=== PATIENT | female | born 1960 | race Caucasian/White ===

== ENCOUNTER → 2020-08-10 | Outpatient (CLI) | payer OTHER, SELFPAY ==
[~2020-08-10] VITALS: Ht 160 cm; Wt 54.4 kg
[~2020-08-10] MED LIST: CARAFATE 1 GM TA1 GM PO; FAMOTIDINE20 MG PO; ONDANSETRON HCL4 MG PO; OXYCODONE HCL5 MG PO; PANTOPRAZOLE SO40 MG PO
[2020-08-10 12:04] LABS: HEMOGLOBIN 14.1 gm/dl (12.3-15.3); RED BLOOD COUNT 4.7 M/UL (4.00-5.10); WHITE BLOOD COUNT 6.9 K/UL (4.5-11.0)
[2020-08-10 12:29] LABS: BUN/CREATININE RATIO 14 (0-10)
== END ==
LOC: OPSV 11:00
PROVIDERS: Internal Medicine
DX: K50.90 Crohn's disease, unspecified, without complications (principal)
CPT/HCPCS: 80053; 85027; 86140; 96365; 96366; J7050; Q5103

== ENCOUNTER → 2020-09-21 | Outpatient (CLI) | payer OTHER, SELFPAY ==
[~2020-09-21] VITALS: Ht 160 cm; Wt 54.4 kg
== END ==
LOC: OPSV 11:26
DX: K50.90 Crohn's disease, unspecified, without complications (principal)
CPT/HCPCS: 96365; 96366; J7050; Q5103

== ENCOUNTER → 2020-11-02 | Outpatient (CLI) | payer OTHER, SELFPAY ==
[~2020-11-02] VITALS: Ht 160 cm; Wt 54.4 kg
[2020-11-02 11:53] LABS: HEMOGLOBIN 13.6 gm/dl (12.3-15.3); RED BLOOD COUNT 4.38 M/UL (4.00-5.10); WHITE BLOOD COUNT 6.9 K/UL (4.5-11.0)
== END ==
LOC: OPSV 11:00
PROVIDERS: Nurse Practitioner Family
DX: K50.90 Crohn's disease, unspecified, without complications (principal)
CPT/HCPCS: 36415; 80053; 85027; 86140; 96365; 96366; J7050; Q5103

== ENCOUNTER → 2020-12-28 | Outpatient (CLI) | payer OTHER, SELFPAY ==
[~2020-12-28] VITALS: Ht 160 cm; Wt 54.4 kg
== END ==
LOC: OPSV 12-14 11:00
DX: K50.90 Crohn's disease, unspecified, without complications (principal)
CPT/HCPCS: 96365; 96366; J7050; Q5103

== ENCOUNTER → 2021-02-08 | Outpatient (CLI) | payer OTHER ==
[~2021-02-08] VITALS: Ht 160 cm; Wt 54.4 kg
[2021-02-08 10:58] LABS: HEMOGLOBIN 13.4 gm/dl (12.3-15.3); RED BLOOD COUNT 4.23 M/UL (4.00-5.10)
== END ==
LOC: OPSV 10:00
PROVIDERS: Nurse Practitioner Family
DX: K50.90 Crohn's disease, unspecified, without complications (principal)
CPT/HCPCS: 36415; 80053; 85027; 86140; 96365; 96366; J7050; Q5103

== ENCOUNTER → 2021-03-22 | Outpatient (CLI) | payer OTHER ==
[~2021-03-22] VITALS: Ht 160 cm; Wt 54.4 kg
[2021-03-22 11:31] LABS: HEMOGLOBIN 13.1 gm/dl (12.3-15.3); RED BLOOD COUNT 4.07 M/UL (4.00-5.10); WHITE BLOOD COUNT 6.4 K/UL (4.5-11.0)
[2021-03-22 14:00] LABS: BUN/CREATININE RATIO 13 (0-10)
== END ==
LOC: OPSV 10:00
PROVIDERS: Nurse Practitioner Family
DX: K50.90 Crohn's disease, unspecified, without complications (principal)
CPT/HCPCS: 36415; 80053; 85027; 86140; 96365; 96366; 96375; J7050; Q5103

== ENCOUNTER → 2021-05-03 | Outpatient (CLI) | payer OTHER ==
[~2021-05-03] VITALS: Ht 160 cm; Wt 54.4 kg
== END ==
LOC: OPSV 08:17
DX: K50.90 Crohn's disease, unspecified, without complications (principal)
CPT/HCPCS: 96365; 96366; J7050; Q5103

== ENCOUNTER → 2021-06-14 | Outpatient (CLI) | payer OTHER ==
[~2021-06-14] VITALS: Ht 160 cm; Wt 54.4 kg
[2021-06-14 11:04] LABS: HEMOGLOBIN 13.5 gm/dl (12.3-15.3); RED BLOOD COUNT 4.17 M/UL (4.00-5.10)
[2021-06-14 11:29] LABS: BUN/CREATININE RATIO 17 (0-10)
== END ==
LOC: OPSV 09:30
PROVIDERS: Nurse Practitioner Family
DX: K50.90 Crohn's disease, unspecified, without complications (principal)
CPT/HCPCS: 36415; 80053; 85027; 86140; 96365; 96366; J7050; Q5103